=== PATIENT | female | born 1980 | race African-American/Black ===

== ENCOUNTER 2017-07-29 11:21 | Emergency (ER) | payer SELFPAY ==
[~2017-07-29] VITALS: Ht 167.6 cm; Wt 51.3 kg
[2017-07-29 12:12] LABS: APPEARANCE,URINE SLIGHTLY CLOUDY; BILIRUBIN, URINE NEGATIVE (NEGATIVE); COLOR,URINE PALE YELLOW; GLUCOSE, URINE (UA) NEGATIVE (NEGATIVE); KETONES,URINE 1+ (NEGATIVE); LEUKOCYTE ESTERASE ,URINE 1+ (NEGATIVE); NITRITE,URINE NEGATIVE (NEGATIVE); PH,URINE 6 (4.5-8.0); PROTEIN,URINE NEGATIVE (NEGATIVE); UROBILINOGEN,URINE NORMAL MG/DL (0.0-1.0)
[2017-07-29 13:02] LABS: BASOPHILS % (AUTO) 0.9 % (0.0-2.0); EOSINOPHILS % (AUTO) 1.8 % (0.0-3.0); HEMATOCRIT 28.3 % (37.0-47.0); HEMOGLOBIN 8.3 G/DL (12.0-16.0); LYMPHOCYTES % (AUTO) 20.5 % (20.0-45.0); MEAN CORPUSCULAR VOLUME 72 FL (80-99); MONOCYTES % (AUTO) 6.3 % (1.0-10.0); NEUTROPHILS % (AUTO) 70.5 % (45.0-75.0); PLATELET COUNT 329 K/UL (150-450); RED BLOOD COUNT 3.95 M/UL (4.20-5.40); RED CELL DISTRIBUTION WIDTH 16.7 % (11.6-14.8); WHITE BLOOD COUNT 6.9 K/UL (4.8-10.8)
[2017-07-29 13:15] LABS: ANION GAP 8 mmol/L (5-15); BLOOD UREA NITROGEN 7 mg/dL (7-18); CALCIUM 9.2 MG/DL (8.5-10.1); CARBON DIOXIDE 30 MMOL/L (21-32); CHLORIDE 101 MMOL/L (98-107); CREATININE 0.8 MG/DL (0.55-1.30); POTASSIUM 3.4 MMOL/L (3.5-5.1); SODIUM 139 MMOL/L (136-145)
[2017-07-29 13:19] LABS: ALANINE AMINOTRANSFERASE 18 U/L (12-78); ALBUMIN 3.8 G/DL (3.4-5.0); ALBUMIN/GLOBULIN RATIO 0.9 (1.0-2.7); ALKALINE PHOSPHATASE 50 U/L (46-116); ASPARTATE AMINO TRANSFERASE 15 U/L (15-37); BILIRUBIN,TOTAL 0.3 MG/DL (0.2-1.0)
--- NOTE | 2017-07-29 14:20 | Diagnostic Imaging Report ---
Indication: Pelvic pain, negative test Technique: Transabdominal and transvaginal images Comparison: none Findings: The uterus is enlarged, measuring 13.2 cm in length by 8.2 cm AP. The endometrium measures 7 mm thick. There is a large posterior fundal intramural fibroid which measures approximately 5.7 x 5.7 cm in diameter. The left ovary measures 3.8 cm in length, contains a 2.5 cm presumed dominant follicle. This contains internal debris which may indicate a small amount of internal hemorrhage. The right ovary measures 4.3 cm in length. No adnexal mass demonstrated. There is a small amount of free cul-de-sac fluid. There is a small cervical nabothian cyst. Impression: Enlarged fibroid uterus, with dominant 5.7 cm fundal fibroid Negative for adnexal mass Trace free cul-de-sac fluid, presumed physiologic
[2017-07-29 14:21] VITALS: BP 109/79
--- NOTE | 2017-07-30 07:26 | Emergency Room Report ---
History of Present Illness General Chief Complaint: Abdominal Pain Source: Patient Present Illness HPI 37-year-old female presents ED complaining of lower abdominal pain. States she' s been having increased vaginal bleeding beyond that time of her period. For the last 10 days. Notes passing clots. Lower pain, cramping, 8/10, nonradiating. Patient has history of fibroids but was told many years ago that they are too small to do anything. Denies any nausea or vomiting. Denies dysuria or hematuria. No other aggravating or relieving factors. Denies any other associated symptoms Allergies: Coded Allergies: PENICILLINS (Verified Allergy, Unknown, 07/29/17) Patient History Past Medical History: none Past Surgical History: none Pertinent Family History: none Social History: Denies: smoking, alcohol use, drug use Last Menstrual Period: 07/11/2016 Now: No : 5 Para: 3 Immunizations: UTD Reviewed Nursing Documentation: PMH: Agreed, PSxH: Agreed Nursing Documentation-PMH Past Medical History: No History, Except For Review of Systems All Other Systems: negative except mentioned in HPI Physical Exam Vital Signs Date Time Temp Pulse Resp B/P (MAP) Pulse Ox O2 Delivery O2 Flow Rate FiO2 07/29/17 11:32 97.5 85 16 114/78 100 Room Air 97.5 Sp02 EP Interpretation: reviewed, normal General Appearance: no apparent distress, alert, GCS 15, non-toxic Head: normocephalic, atraumatic Eyes: bilateral eye normal inspection, bilateral eye PERRL ENT: hearing grossly normal, normal pharynx, no angioedema, normal voice Neck: full range of motion, supple/symm/no masses Respiratory: chest non-tender, lungs clear, normal breath sounds, speaking full sentences Cardiovascular #1: regular rate, rhythm, no edema Cardiovascular #2: 2+ carotid (R), 2+ carotid (L), 2+ radial (R), 2+ radial (L) , 2+ dorsalis pedis (R), 2+ dorsalis pedis (L) Gastrointestinal: normal bowel sounds, non tender, soft, non-distended, no guarding, no rebound Rectal: deferred Genitourinary: normal inspection, no CVA tenderness Musculoskeletal: back normal, gait/station normal, normal range of motion, non- tender Neurologic: alert, oriented x3, responsive, motor strength/tone normal, sensory intact, speech normal Psychiatric: judgement/insight normal, memory normal, mood/affect normal, no suicidal/homicidal ideation Reflexes: 3+ bicep (R), 3+ bicep (L), 3+ tricep (R), 3+ tricep (L), 3+ knee (R) , 3+ knee (L) Skin: normal color, no rash, warm/dry, well hydrated Lymphatic: no adenopathy Medical Decision Making Diagnostic Impression: Primary Impression: Fibroids Qualified Codes: D25.9 - Leiomyoma of uterus, unspecified ER Course Hospital Course 37-year-old female presents to ED complaining of lower abdominal pain + spotting Differential diagnoses include: gastrits, gastroenterits, ectopic , ovarian torsion/cyst, UTI Clinical course Patient placed on stretcher in ED. After initial history and physical I ordered labs, IV fluids and pain meds and pelvic ultrasound. Labs-no leukocytosis, Hb 8.3, electrolytes okay, beta hCG negative, UA negative Pelvic ultrasound- fibroids about 5.7cm Discussed findings with patient. No requirement for transfusion at this time. States Hb is higher than her baseline. Recommended close followup with [employer] MANAGER Diagnosis - fibroids Stable and discharged to home. Followup with PMD/[employer]OTE[employer] DEPARTMENT MANAGER. Return to ED if symptoms recur or worsen Labs Test 07/29/17 11:47 07/29/17 12:30 Urine Color Pale yellow Urine Appearance Slightly cloudy Urine pH 6 (4.5-8.0) Urine Specific [place] 1.015 (1.005-1.035) Urine Protein Negative (NEGATIVE) Urine Glucose (UA) Negative (NEGATIVE) Urine Ketones 1+ (NEGATIVE) Urine Occult Blood Negative (NEGATIVE) Urine Nitrite Negative (NEGATIVE) Urine Bilirubin Negative (NEGATIVE) Urine Urobilinogen Normal MG/DL (0.0-1.0) Urine Leukocyte Esterase 1+ (NEGATIVE) Urine RBC 0-2 /HPF (0 - 2) Urine WBC 2-4 /HPF (0 - 2) Urine Squamous Epithelial Cells Moderate /LPF (NONE/OCC) Urine Bacteria Few /HPF (NONE) Urine Mucus Moderate /LPF (NONE/OCC) Urine HCG, Qualitative Negative White Blood Count 6.9 K/UL (4.8-10.8) Red Blood Count 3.95 M/UL (4.20-5.40) Hemoglobin 8.3 G/DL (12.0-16.0) Hematocrit 28.3 % (37.0-47.0) Mean Corpuscular Volume 72 FL (80-99) Mean Corpuscular Hemoglobin 21.1 PG (27.0-31.0) Mean Corpuscular Hemoglobin Concent 29.4 G/DL (32.0-36.0) Red Cell Distribution Width 16.7 % (11.6-14.8) Platelet Count 329 K/UL (150-450) Mean Platelet Volume 7.6 FL (6.5-10.1) Neutrophils (%) (Auto) 70.5 % (45.0-75.0) Lymphocytes (%) (Auto) 20.5 % (20.0-45.0) Monocytes (%) (Auto) 6.3 % (1.0-10.0) Eosinophils (%) (Auto) 1.8 % (0.0-3.0) Basophils (%) (Auto) 0.9 % (0.0-2.0) Prothrombin Time 10.5 SEC (9.30-11.50) Prothromb Time International Ratio 1.0 (0.9-1.1) Activated Partial Thromboplast Time 22 SEC (23-33) Sodium Level 139 MMOL/L (136-145) Potassium Level 3.4 MMOL/L (3.5-5.1) Chloride Level 101 MMOL/L (98-107) Carbon Dioxide Level 30 MMOL/L (21-32) Anion Gap 8 mmol/L (5-15) Blood Urea Nitrogen 7 mg/dL (7-18) Creatinine 0.8 MG/DL (0.55-1.30) Estimat Glomerular Filtration Rate > 60 mL/min (>60) Glucose Level 127 MG/DL (74-106) Calcium Level 9.2 MG/DL (8.5-10.1) Total Bilirubin 0.3 MG/DL (0.2-1.0) Aspartate Amino Transf (AST/SGOT) 15 U/L (15-37) Alanine Aminotransferase (ALT/SGPT) 18 U/L (12-78) Alkaline Phosphatase 50 U/L (46-116) Total Protein 8.0 G/DL (6.4-8.2) Albumin 3.8 G/DL (3.4-5.0) Globulin 4.2 g/dL Albumin/Globulin Ratio 0.9 (1.0-2.7) Lipase 114 U/L (73-393) CT/MRI/US Diagnostic Results CT/MRI/US Diagnostic Results : Imaging Test Ordered: Pelvic US Impression fibroids about 5.7cm Last Vital Signs Date Time Temp Pulse Resp B/P (MAP) Pulse Ox O2 Delivery O2 Flow Rate FiO2 07/29/17 14:21 98.1 79 18 109/79 100 Room Air Status: improved Disposition: HOME, SELF-CARE Condition: Stable Patient Instructions: Uterine Fibroids, [id number] JUAN MILES M.D. Jul 30, 2017 07:26
== END 2017-07-29 14:25 | disposition home or self-care (01) ==
LOC: EMR 11:45
DX: D25.1 Intramural leiomyoma of uterus (principal); Z88.0 Allergy status to penicillin
CPT/HCPCS: 36415; 76856; 80053; 81003; 81025; 83690; 85025; 85610; 85730; 86850; 86900; 86901; 96360; 96361; 99284